=== PATIENT | male | born 1980 | race Caucasian/White ===

== ENCOUNTER 2019-01-24 11:41 | Emergency (ER) | payer OTHER ==
[~2019-01-24] VITALS: Ht 177.8 cm; Wt 114.0 kg
[2019-01-24] MEDS ORDERED: KETOROLAC 30 MG/1 ML ONE (12:15)
[2019-01-24] MEDS ORDERED: KETOROLAC 30 MG/1 ML IM ONE (12:30)
[2019-01-24] MEDS ORDERED: ONDANSETRON ODT 4 MG ONE (12:58)
[2019-01-24] MEDS ORDERED: HYDROmorphone 2 MG/ML, 1ML ONE (12:58)
[2019-01-24] MEDS ORDERED: HYDROmorphone 2 MG/ML, 1ML IM ONE (13:00)
[2019-01-24] MEDS ORDERED: ONDANSETRON ODT 4 MG PO ONE (13:00)
[2019-01-24 13:08] LABS: BASOPHILS # (AUTO) 0.06 x10^3/uL (0-0.1); BASOPHILS % (AUTO) 1 % (0-1); EOSINOPHILS # (AUTO) 0.25 x10^3/uL (0-0.4); EOSINOPHILS % (AUTO) 2 % (1-7); LYMPHOCYTES # (AUTO) 2.07 x10^3/uL (1-3.4); LYMPHOCYTES % (AUTO) 18 % (22-44); MD NO; MEAN CORPUSCULAR HEMOGLOBIN 27.1 pg (27.5-34.5); MEAN CORPUSCULAR HGB CONC 33.8 g/dL (33.2-36.2); MEAN CORPUSCULAR VOLUME 80.2 fL (81-97); MONOCYTES % (AUTO) 7 % (2-9); NEUTROPHILS # (AUTO) 8.09 x10^3/uL (1.8-6.8); NEUTROPHILS % (AUTO) 72 % (42-75); PLATELET COUNT 206 x10^3/uL (130-400); RED BLOOD COUNT 5.68 x10^6/uL (4.38-5.82); RED CELL DISTRIBUTION WIDTH 14.1 % (9.4-14.8)
[2019-01-24 13:20] LABS: ALBUMIN 4.1 g/dL (3.4-5.0); ANION GAP 5 mmol/L (5-15); CALCIUM 8.5 mg/dL (8.5-10.1); CHLORIDE 108 mmol/L (98-107); CREATININE 1.17 mg/dL (0.7-1.3)
[2019-01-24 14:18] VITALS: BP 137/76
--- NOTE | 2019-01-24 14:18 | NUR ---
PT GIVEN DISCHARGE INSTRUCTIONS.
== END 2019-01-24 14:20 | disposition home or self-care (01) ==
LOC: ED 12:34
DX: M79.672 Pain in left foot (principal)
CPT/HCPCS: 36415; 73630; 80048; 82040; 84550; 85025; 96372; 99284; J1170; J1885; Q0162